=== PATIENT | female | born 1985 | race Caucasian/White ===

== ENCOUNTER 2016-08-24 07:05 | Day surgery (SDC) | payer BC, OTHER ==
--- NOTE | 2016-08-23 18:32 | PREOPHP ---
DATE OF ADMISSION: 08/24/2016 HISTORY OF PRESENT ILLNESS: Ms. Catherine Samayoa is a 31-year-old 3, para 2, who desires perm anent surgical sterilization. PAST MEDICAL HISTORY: None. MEDICATIONS: Oral contraception pill. PAST SURGICAL HISTORY: D and C. OBSTETRICAL HISTORY: x2 vaginal deliveries, x1 termination of . GYNECOLOGIC HISTORY: 12, regular, 3 to 5 days, sexually active with 1 partner. Denies any STDs. SOCIAL HISTORY: Denies any smoking, drugs or alcohol. FAMILY HISTORY: None. REVIEW OF SYSTEMS: All within normal except history of present illness. PHYSICAL EXAMINATION: HEENT: Within normal. LUNGS: CTA bilateral. CARDIOVASCULAR: S1, S2, regular rhythm. ABDOMEN: Soft, nontender. Negative distention. EXTREMITIES: Negative edema. No calf tenderness. VAGINAL EXAM: Normal external genitalia. Cervix negative CMT, negative lesions. Adnexa negative m ass, nontender bilateral. Fundus within normal limits. ASSESSMENT: Multiparity, desires permanent surgical sterilization. PLAN: Schedule for Essure implant also known as hysteroscopic tubal occlusion with possible laparos copic bilateral tubal sterilization. Dictated By: ARGELIA LUO/KLEBER Conf#: [id number] DID#: [id number]
[~2016-08-24] VITALS: Ht 165.1 cm; Wt 80.8 kg
[2016-08-24] VITALS (9 sets, daily range): BP systolic 106–116; BP diastolic 49–61; PULSE 72–90; RESP 16–19; Ht 165.1 cm; Wt 80.8 kg
[~2016-08-24 07:05] MED LIST: LACTATED RINGER'S 1,000 ML IV ONE; LACTATED RINGER'S 1,000 ML IV SCH
[2016-08-24 07:39] LABS: ADD SCAN DIFF NO
[2016-08-24 07:48] LABS: BASOPHIL # 0.1 10^3/ul (0.0-0.1); BASOPHILS % 0.6 % (0.0-2.0); EOSINOPHILS # 0.1 10^3/ul (0.0-0.5); EOSINOPHILS % 0.6 % (0.0-7.0); HEMATOCRIT 41.4 % (37.0-47.0); HEMOGLOBIN 14.4 g/dl (12.0-16.0); LYMPHOCYTES # 1.4 10^3/ul (0.8-2.9); LYMPHOCYTES % 13.7 % (15.0-51.0); MEAN CORPUSCULAR HEMOGLOBIN 29.9 pg (29.0-33.0); MEAN CORPUSCULAR HGB CONC 34.8 g/dl (32.0-37.0); MEAN CORPUSCULAR VOLUME 85.9 fl (82.0-101.0); MEAN PLATELET VOLUME 10.8 fl (7.4-10.4); MONOCYTE # 0.7 10^3/ul (0.3-0.9); MONOCYTES % 6.5 % (0.0-11.0); NEUTROPHIL # 7.9 10^3/ul (1.6-7.5); NEUTROPHILS % 78.3 % (39.0-77.0); PLATELET COUNT 219 10^3/UL (140-415); RED BLOOD COUNT 4.82 10^6/ul (4.20-5.40); RED CELL DISTRIBUTION WIDTH 12.4 % (11.5-14.5)
[2016-08-24] MEDS ORDERED: ROCURONIUM 50 MG INJ ONE ×2 (07:51)
[2016-08-24] MEDS ORDERED: PROPOFOL 20 ML ONE (07:51)
[2016-08-24] MEDS ORDERED: GLYCOPYRROLATE 0.4 MG INJ ONE (07:51)
[2016-08-24] MEDS ORDERED: NEOSTIGMINE 3 MG/3 ML SYRINGE ONE (07:51)
[2016-08-24] MEDS ORDERED: CEFAZOLIN 1 GM INJ ONE (07:51)
[2016-08-24] MEDS ORDERED: DEXAMETHASONE 4 MG/ML 1 ML INJ ONE (07:52)
[2016-08-24] MEDS ORDERED: FENTAnyl 50 MCG/ML VIAL ONE (07:52)
[2016-08-24] MEDS ORDERED: ONDANSETRON 4 MG INJ ONE (07:52)
[2016-08-24] MEDS ORDERED: MIDAZOLAM 1 MG/ML 2 ML INJ ONE (07:52)
[2016-08-24] MEDS ORDERED: KETOROLAC 30 MG INJ ONE (08:33)
[2016-08-24] MEDS ORDERED: METOCLOPRAMIDE 10 MG INJ ONE (08:55)
[2016-08-24] MEDS ORDERED: ONDANSETRON 4 MG INJ IV PRN (09:00)
[2016-08-24] MEDS ORDERED: FENTAnyl 50 MCG/ML VIAL IV PRN ×3 (09:00)
[2016-08-24] MEDS ORDERED: LABETALOL HCL 20MG INJ IV PRN (09:00)
[2016-08-24] MEDS ORDERED: TRIMETHOBENZAMIDE 100 MG/ML VIAL IM PRN (09:00)
[2016-08-24] MEDS ORDERED: EPHEDrine SULFATE 50 MG/5 ML SYG IV PRN (09:00)
[2016-08-24] MEDS ORDERED: OXYCODONE/ACETAMINOPHEN (5/325) TAB PO PRN ×2 (09:00)
[2016-08-24] MEDS ORDERED: MEPERIDINE 25 MG INJ IV PRN (09:00)
[2016-08-24] MEDS ORDERED: MIDAZOLAM 1 MG/ML 2 ML INJ IV PRN (09:00)
[2016-08-24] MEDS ORDERED: HYDROmorphONE (0.2 MG/ML) 10ML SYG IV PRN ×3 (09:00)
[2016-08-24] MEDS ORDERED: hydrALAzine 20 MG INJ IV PRN (09:00)
[2016-08-24] MEDS ORDERED: DIPHENHYDRAMINE 50 MG INJ IV PRN (09:00)
--- NOTE | 2016-08-24 13:23 | OPR ---
DATE OF OPERATION: 08/24/2016 PREOPERATIVE DIAGNOSIS: Multiparity, desires permanent surgical sterilization. POSTOPERATIVE DIAGNOSIS: Multiparity, desires permanent surgical sterilization. OPERATION PERFORMED: Hysteroscopic tubal occlusion by Essure implant, lot # [id number]. SURGEON: Evin Banuelos MD. BEHAVIORAL HEALTH WORKER: None. FINDINGS: Bimanual size within normal, position anteverted. Hysteroscopic view of the uterus adequ ate. [place] normal. Adhesions absent. Placement of 3 trailing coils on the left and 3 trailing coi ls on the right. ESTIMATED BLOOD LOSS: Minimal. SPECIMEN: None. COMPLICATIONS OF PROCEDURE: None. TYPE OF ANESTHESIA: General. DESCRIPTION OF PROCEDURE: After explaining the risks, benefits and alternatives, the patient and co nsent signed in chart, the patient was taken to the operating room where general anesthesia was obta ined without difficulty. The patient was then examined under anesthesia and found to have a small a nteverted uterus with normal adnexa. She was then placed in dorsal lithotomy position and prepared and draped in normal sterile fashion. A heavy weighted speculum was then placed in the patient's va adri and the anterior lip of the cervix was grasped with a single tooth tenaculum. A hysteroscope w as then entered into the uterine cavity and findings noted above. Both tubal ostia were identified. The delivery catheter was then inserted into the tubal ostia up to the black marker. The delivery catheter was retracted and the device deployed. After 10 seconds, the catheter was detached from t he device. The device was in good position with 3 trailing coils on the right side. The procedure was repeated on the left side with 3 trailing coils. The procedure was completed. All instruments were removed from the patient's vagina. The patient tolerated procedure well. All counts were jefry ect x2. The patient was given a prescription for hysterosalpingogram in 3 months and control use until hysterosalpingogram shows tubal occlusion. Dictated By: EVIN LUO/KLEBER Conf#: [id number] DID#: [id number]
== END 2016-08-24 10:20 | disposition home or self-care (01) ==
LOC: SDS 07:05
PROVIDERS: ATTEND Obstetrics & Gynecology
DX: Z30.2 Encounter for sterilization (principal)
CPT/HCPCS: 58565; 85025; 86850; 86900; 86901; A4264; J0690; J1100; J1885; J2250; J2405; J2765; J3010; Z7512; Z7610; J2710